=== PATIENT | male | born 1995 | race Caucasian/White ===

== ENCOUNTER 2018-12-13 17:35 | Emergency (ER) | payer BC ==
[~2018-12-13] VITALS: Ht 167.6 cm; Wt 65.9 kg
[2018-12-13 18:20] LABS: BASO % 0.3 % (0.0-2.0); GRAN # 5.1 (1.4-6.5); GRAN % 78.8 % (42.2-75.2); HEMATOCRIT 42.2 % (42.0-52.0); LYMPH # 0.7 (1.2-3.4); LYMPH % 11.2 % (20.0-51.0); MEAN CELL VOLUME 88 fl (80.0-100.0); MEAN CORPUSCULAR HEMOGLOBIN 29 pg (27.0-31.0); MEAN CORPUSCULAR HGB CONC 33 g/dl (33.0-37.0); MONO # 0.6 (0.1-0.6); MONO % 9.4 % (1.7-9.3); PLATELET COUNT 179 K/mm3 (130-400); RED BLOOD COUNT 4.81 M/mm3 (4.20-5.60); REDCELL DISTRIBUTION WIDTH-CV 12.8 % (11.5-14.5)
[2018-12-13 18:30] LABS: ALBUMIN 4.3 gm/dL (3.5-5.0); BILIRUBIN,TOTAL 0.4 mg/dL (0.0-1.0); CREATININE, serum 1.02 (0.66-1.25); POTASSIUM 3.7 mmol/L (3.4-5.0); TOTAL PROTEIN 7.6 gm/dL (6.4-8.2)
[2018-12-13] MEDS ORDERED: DOXYCYCLINE 10100 MG PO (19:33)
[2018-12-13 20:10] VITALS: BP 123/73; PULSE 104; TEMP 101.8
== END 2018-12-13 19:55 | disposition home or self-care (01) ==
LOC: COL.ER 17:35
PROVIDERS: Nurse Practitioner
DX: J18.1 Lobar pneumonia, unspecified organism (principal)
CPT/HCPCS: J7030

== ENCOUNTER → 2019-12-12 | Outpatient (CLI) | payer BC ==
[~2019-12-12] MED LIST: DOXYCYCLINE 10100 MG PO
== END ==
LOC: ZLAB.KSTAT 18:09
DX: R50.9 Fever, unspecified (principal); Z20.828 Contact with and (suspected) exposure to other viral communicable diseases